=== PATIENT | male | born 1950 | race Asian ===

== ENCOUNTER 2021-01-13 09:37 | Emergency (ER) | payer MEDICARE, OTHER ==
[2021-01-13 09:44] VITALS: BP 155/86
--- NOTE | 2021-01-13 10:02 | ED Physician Documentation ---
PD HPI HEAD INJURY - Stated complaint Stated Complaint: HEAD INJURY - Chief complaint Chief Complaint: Laceration - History obtained from History obtained from: Patient - History of Present Illness Mechanism of head injury: Fell (slipped on snow and fell, striking head on mud flap of his truck. Lac to top of head. Mild neck pain noted later. Here for sutures after /daughter looked at the wound. Daughter is a PA in [employer].) Where head injury occurred: Home Timing - onset: How many hours ago (1), Today Location of injury: Top Quality of pain: Dull Associated symptoms: Neck pain (mild lower side). No: LOC, AMS, Nausea / vomiting Symptoms worsen with: Palpation. No: Movement Review of Systems Constitutional: denies: Fever, Chills Nose: denies: Rhinorrhea / runny nose, Congestion Throat: denies: Sore throat Respiratory: denies: Cough Neurologic: denies: Focal weakness, Numbness, Near syncope, Confused, Altered mental status, LOC PD PAST MEDICAL HISTORY - Past Medical History Past Medical History: Yes Cardiovascular: Hypertension, High cholesterol Respiratory: None Neuro: None Endocrine/Autoimmune: Type 2 diabetes GI: None : None HEENT: None Psych: None Musculoskeletal: None Derm: None - Past Surgical History Past Surgical History: Yes General: Cholecystectomy - Present Medications Home Medications: Ambulatory Orders Medication Instructions Recorded Confirmed Aspirin [Aspirin EC] 81 mg PO DAILY 01/13/21 01/13/21 Cholecalciferol (Vitamin D3) 1,250 mcg PO DAILY 01/13/21 01/13/21 [Vitamin D3] Hydrochlorothiazide 12.5 mg PO DAILY 01/13/21 01/13/21 Lisinopril [Prinivil] 10 mg PO DAILY 01/13/21 01/13/21 Metformin HCl [Glucophage] 1,000 mg PO BID 01/13/21 01/13/21 SITagliptin [Januvia] 100 mg PO DAILY 01/13/21 01/13/21 Simvastatin [Zocor] 10 mg PO DAILY 01/13/21 01/13/21 - Allergies Allergies/Adverse Reactions: Allergies Allergy/AdvReac Type Severity Reaction Status Date / Time No Known Drug Allergies Allergy Verified 01/13/21 09:40 - Social History Does the pt smoke?: No Smoking Status: Never smoker Does the pt drink ETOH?: No Does the pt have substance abuse?: No - Immunizations Immunizations are current?: No Immunizations: TDAP >10years/unknown PD ED PE NORMAL - Vitals Vital signs reviewed: Yes - General General: Alert and oriented X 3, No acute distress, Well developed/nourished - HEENT HEENT: PERRL, EOMI, Other (left posterior vertex with 2.5 cm laceration into fatty layer. No FB and not current bleeding. Edges are closely approximated. ) - Neck Neck: Supple, no meningeal sign, No bony TTP (mild tender right lateral lower neck. Not really tender midline. Good ROM without notable pain. 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 No: FB identified Skin layer closure: [place] (9) Other: Patient tolerated well, No complications, Neurovascular intact, Tetanus booster given Departure - Departure Disposition: 01 Home, Self Care Clinical Impression: Scalp laceration Qualifiers: Encounter type: initial encounter Qualified Code(s): S01.01XA - Laceration without foreign body of scalp, initial encounter Fall on snow Qualifiers: Encounter type: initial encounter Qualified Code(s): W00.0XXA - Fall on same level due to ice and snow, initial encounter Condition: Stable Record reviewed to determine appropriate education?: Yes Instructions: ED Laceration Scalp Stitch Or Stap Follow-Up: JOSE DUKE ARNP [Primary Care Provider] - Comments: It is okay to wash and shower. Clean off the wound twice a day with soap and water, or peroxide and water. Apply some antibiotic ointment to it to keep it moist. Also to watch for signs of infection such as purulence, redness or increasing pain. Return to your primary care or the ER at the specified time for suture removal. Staple removal 8 to 10 days. Tylenol ibuprofen as needed for pains. Return if generalized headache, confusion, off balance, nausea or visual changes. Otherwise expect a little bit of mild local headache and some neck pain for couple of days. Discharge Date/Time: 01/13/21 10:39
[2021-01-13] MEDS ORDERED: TETANUS/DIPHTHERIA/PERTUSSIS 0.5 ML SYRINGE IM ONE (10:09)
[2021-01-13] MEDS ORDERED: ACETAMINOPHEN 325 MG TABLET PO STA (10:10)
== END 2021-01-13 10:39 | disposition home or self-care (01) ==
LOC: ED 09:37
DX: S01.01XA Laceration without foreign body of scalp, initial encounter (principal); W00.0XXA Fall on same level due to ice and snow, initial encounter; W22.09XA Striking against other stationary object, initial encounter; I10 Essential (primary) hypertension; E11.9 Type 2 diabetes mellitus without complications; Z79.84 Long term (current) use of oral hypoglycemic drugs
CPT/HCPCS: 12001; 90471; 99282; 99283